=== PATIENT | female | born 1990 | race Caucasian/White ===

== ENCOUNTER 2017-01-08 13:15 | Outpatient (CLI) | payer OTHER | END 2017-01-08 23:00 | LOC: LAB SRH 13:15 | DX: R10.9 Unspecified abdominal pain (principal); R00.0 Tachycardia, unspecified; N71.9 Inflammatory disease of uterus, unspecified | CPT/HCPCS: 90065; 90074; 90100; 92031; 93004; 93140; 95059 ==